=== PATIENT | male | born 1990 | race Two or more races ===

== ENCOUNTER 2019-04-20 06:47 | Emergency (ER) | payer OTHER ==
[~2019-04-20] VITALS: Ht 182.9 cm; Wt 95.3 kg
[2019-04-20 10:29] VITALS: BP 134/79
[2019-04-20] MEDS ORDERED: HYDROcodone-ACET 7.5/325MG TAB PO ONE (10:30)
== END 2019-04-20 10:36 | disposition home or self-care (01) ==
LOC: ER 07:53
DX: M54.9 Dorsalgia, unspecified (principal); F17.210 Nicotine dependence, cigarettes, uncomplicated
CPT/HCPCS: 72100